=== PATIENT | female | born 1960 | race Caucasian/White ===

== ENCOUNTER 2016-06-02 01:03 | Inpatient (IN) | payer OTHER ==
[~2016-06-02] VITALS: Ht 152.4 cm; Wt 52.2 kg
[~2016-06-02 01:03] MED LIST: BACLOFEN10 M1 PO; KETOROLAC TROME10 M1 PO; MOBIC7.5 M1 PO; MOTRIN IB200 M1 PO; OXYCODONE HCL10 M2 PO; PERCOCET 5-3251 EACH PO; PREMARIN0.45 M1 PO; SERTRALINE HCL50 MG PO; TRAMADOL HCL50 M1 PO; VICODIN 5-3001 EACH PO; ZOLPIDEM TARTRA10 M1 PO
--- NOTE | 2016-06-02 20:30 | NUR ---
PT ARRIVED TO A VIA STRETCHER FROM PACU @ 2024. FAMILY AT BEDSIDE. PT DROWSY/AROUSABLE, CALM, AND COOPERATIVE. PER PT - PAIN IS TOLERABLE AND STABLE AT THIS TIME. SANTANA GALE REPORTED TO BEDSIDE. RN JACOBY COMPLETED VITAL SIGNS. THIS RN COMPLETED ADMISSION ASSESSMENT. PT ORIENTED TO ROOM, STAFF, AND CALL VERDIN. BOX LUNCH ORDERED WITH CENTRIFUGAL DRIER OPERATOR ON Q PUMP IN PLACE AND RUNNING AT 10ML/HR. NILSON WRAP TO RLE. ALPS PLACED ON LLE. RN WILL CONTINUE TO MONITOR PT.
[2016-06-02 21:00] VITALS: BP 128/72
--- NOTE | 2016-06-02 21:53 | PN- Orthopedic ---
Subjective Subjective: poc s/p right tka no complaints denies cp, sob, no n+v Objective Vital Signs and I&Os Vital Signs Date Time Temp Pulse Resp B/P Pulse O2 O2 Flow FiO2 Ox Delivery Rate 06/021 95 Room Air 06/02 2100 97.5 78 14 128/72 95 Room Air Physical Exam: cv; rrr lngs: clear abd: sfot ext: drsg dry distal cms intact onq in place Assessment/Plan Assessment/Plan ortho stable plan oob with pt in am coumadin for dvt prophylaxis home d/c planning Core Measures/Miscellaneous Venous Thromboembolism VTE Risk Factors: Age > 40, Surgery VTE Contraindications: No Contraindications VTE Prophylaxis Ordered Inpt: Mech & Pharm VTE Diagnosis: No Beta Halina Is Beta Halina a Home Med? No Antibiotics Is Patient on Antibiotics? Yes
[2016-06-02 23:03] VITALS: BP 130/72
[2016-06-03 00:59] VITALS: BP 124/70
[2016-06-03 02:59] VITALS: BP 120/64
[2016-06-03 06:36] VITALS: BP 116/74
--- NOTE | 2016-06-03 08:30 | PN- Orthopedic ---
See Addendum Subjective Subjective: NAEO. Patient without new c/o. Pain controlled. Denies numbness/tingling in BLE. Has not been OOB. Tolerating diet, no n/v. +flatus, no BM. Denies CP/ SOB. Objective Vital Signs and I&Os Vital Signs Date Time Temp Pulse Resp B/P Pulse O2 O2 Flow FiO2 Ox Delivery Rate 06/03 0636 97.8 83 20 116/74 95 Room Air 06/03 0259 98.1 75 18 120/64 95 Room Air 06/03 0059 98.2 81 18 124/70 96 Room Air 06/02 2303 97.9 90 20 130/72 96 Room Air 06/02 2101 95 Room Air 06/02 2100 97.5 78 14 128/72 95 Room Air Intake & Output 06/03 1600 06/03 0800 06/03 0000 06/02 1600 06/02 0800 06/02 0000 Intake Total 1200 700 Output Total 3600 Balance -2400 700 Intake, IV 600 300 Intake, Oral 600 400 Number 0 Bowel Movements Output, Urine 3600 Patient 115 lb Weight Physical Exam: General: NAD, comfortable, A&Ox3 Chest: NRD, breathing comfortably in room air. RRR Abdomen: soft, nontender, nondistended. Ext: Right knee dressing clean dry and intact. Right On-Q pump in place. No calve swelling/TTP, neurovascularly intact bilateral lower extremities Current Medications: Current Medications Sig/Rosaura Start time Last Medication Dose Route Stop Time Status Admin Al Hydroxide/Mg 30 ML Q6P PRN 06/02 2044 AC Hydroxide PO Cefazolin Sodium 1,000 MG ONCE 06/02 0000 DC IV 06/02 235 Dextrose/Lactated 1,000 ML Q13H 06/02 2044 DC 06/02 Ringer's IV 2055 Diphenhydramine HCl 50 MG .STK-MED ONE 06/02 1953 DC IM 06/02 1954 Docusate Sodium 100 MG DAILY NEEDED PRN 06/02 2044 AC PO Fentanyl Citrate 100 MCG .STK-MED ONE 06/02 1600 DC IM 06/02 160 Hydromorphone HCl 2 MG .STK-MED ONE 06/02 193 DC IM 06/02 193 Meperidine HCl 50 MG .STK-MED ONE 06/02 1947 DC IM 06/02 194 Midazolam HCl 4 MG .STK-MED ONE 06/02 1600 DC IM 06/02 1601 Morphine Sulfate 2 MG Q2P PRN 06/02 2044 AC IV Morphine Sulfate 4 MG Q1P PRN 06/02 2044 AC 06/03 IV 0514 Ondansetron HCl 4 MG Q6P PRN 06/02 2044 AC IV Oxycodone/ 1 TAB Q4P PRN 06/02 2044 AC Acetaminophen PO Oxycodone/ 2 TAB Q4P PRN 06/02 2044 AC 06/03 Acetaminophen PO 0044 Polyethylene Glycol 17 GM DAILY NEEDED PRN 06/02 2044 AC PO Ramelteon 8 MG AT BEDTIME NEED.. 06/03 0830 UNVr PO Ropivacaine 500 ML ONCE ONE 06/02 184 DC ON-Q Ball 1 BAG INJ 06/02 1846 Senna/Docusate Sodium 2 TAB AT BEDTIME NEED.. 06/02 2044 AC PO Tranexamic Acid 2,000 MG .STK-MED ONE 06/02 1600 DC IV 06/02 1601 Vancomycin HCl 1,000 MG ONCE ONE 06/03 0300 DC 06/03 Dextrose/Water 250 ML IV 06/03 0359 0220 Warfarin Sodium 5 MG COUMADIN 1700 ONE 06/03 1700 AC PO 06/03 1701 Assessment/Plan Assessment/Plan 55yo F POD#1 s/p right TKA. AVSS, patient progressing well. - Pain control - DC ba - DC IVF - Abx complete - Bowel regimen - f/u INR, dose coumadin for INR 2-3 - OOB with PT, WBAT - I/O's - continue regular diet - Will d/w attending Core Measures/Miscellaneous Venous Thromboembolism VTE Risk Factors: Age > 40, Surgery VTE Contraindications: No Contraindications VTE Prophylaxis Ordered Inpt: Mech & Pharm VTE Diagnosis: No Beta Halina Is Beta Halina a Home Med? No Antibiotics Is Patient on Antibiotics? No
[2016-06-03 09:22] LABS: ABSOLUTE BASOPHIL COUNT 0 /CUMM (0.0-0.2); ABSOLUTE EOSINOPHIL COUNT 0 /CUMM (0.0-0.7); ABSOLUTE GRANULOCYTE CT 14.6 /CUMM (1.4-6.5); ABSOLUTE LYMPH COUNT 1.1 /CUMM (1.2-3.4); ABSOLUTE MONOCYTE COUNT 0.7 /CUMM (0.10-0.60); BASOPHIL % 0.1 % (0.0-2.0); EOSINOPHIL % 0 % (0-5); GRANULOCYTE % 88.5 % (42.2-75.2); HEMATOCRIT 36.3 % (37-47); MEAN CORPUSCULAR HGB 32.1 PG (27.0-31.0); MEAN CORPUSCULAR HGB CONC 34.2 G/DL (33.0-37.0); MEAN CORPUSCULAR VOLUME 93.8 FL (81.0-99.0); MEAN PLATELET VOLUME 7.5 FL (7.4-10.4); PLATELET COUNT 292 /CUMM (130-400); RBC DISTRIBUTION WIDTH 13.1 % (11.5-14.5); RED BLOOD CELL CT 3.87 /CUMM (4.20-5.40)
[2016-06-03 09:27] LABS: PT 11.5 SEC (9.4-12.5)
[2016-06-03 10:09] LABS: WHITE BLOOD CELL COUNT 16.5 /CUMM (4.8-10.8)
[2016-06-03 14:05] VITALS: BP 118/60
[2016-06-03 22:21] VITALS: BP 100/62
--- NOTE | 2016-06-03 22:45 | NUR ---
PT CALLED IN THIS RN AT 2100. PER PT ON-Q PUMP "EXPLODED". BALL DETACHED FROM TUBING AND CONTENTS OF ON-Q PUMP LEAKING OUT. ON-Q PUMP REMOVED FROM R THIGH. PRESSURE DRESSING APPLIED TO SITE. SANTANA HAYES CALLED AND MADE AWARE OF ABOVE. NO FURTHER ORDERS.
[2016-06-04 06:41] VITALS: BP 100/60
[2016-06-04 07:56] LABS: ABSOLUTE BASOPHIL COUNT 0 /CUMM (0.0-0.2); ABSOLUTE EOSINOPHIL COUNT 0.1 /CUMM (0.0-0.7); ABSOLUTE GRANULOCYTE CT 9.7 /CUMM (1.4-6.5); BASOPHIL % 0.4 % (0.0-2.0); EOSINOPHIL % 0.4 % (0-5); GRANULOCYTE % 75.6 % (42.2-75.2); HEMATOCRIT 37.1 % (37-47); MEAN CORPUSCULAR HGB 32.2 PG (27.0-31.0); MEAN CORPUSCULAR HGB CONC 33.9 G/DL (33.0-37.0); MEAN CORPUSCULAR VOLUME 94.8 FL (81.0-99.0); MEAN PLATELET VOLUME 7.5 FL (7.4-10.4); PLATELET COUNT 273 /CUMM (130-400); RBC DISTRIBUTION WIDTH 12.8 % (11.5-14.5); RED BLOOD CELL CT 3.92 /CUMM (4.20-5.40); WHITE BLOOD CELL COUNT 12.8 /CUMM (4.8-10.8)
[2016-06-04 08:16] LABS: PT 11.2 SEC (9.4-12.5)
--- NOTE | 2016-06-04 08:34 | PN- Orthopedic ---
See Addendum Subjective Subjective: Patient reporting increasing pain and right calf and right thigh. She states that the pain has come on suddenly. She denies any chest pain, shortness of breath, difficulty breathing. She denies nausea and vomiting. She has been out of bed ambulating. She has been voiding without difficulty. She acknowledges difficulty moving her bowels. Objective Vital Signs and I&Os Vital Signs Date Time Temp Pulse Resp B/P Pulse O2 O2 Flow FiO2 Ox Delivery Rate 06/04 0641 98.0 84 19 100/60 94 Room Air 06/03 2221 98.0 86 18 100/62 94 Room Air 06/03 1430 Room Air 06/03 1405 98.0 76 20 118/60 96 Room Air Intake & Output 06/04 1600 06/04 0800 06/04 0000 06/03 1600 06/03 0800 06/03 0000 Intake Total 9330 395 6723 700 Output Total 900 3600 Balance 1520 25 -2400 700 Intake, IV 20 75 600 300 Intake, Oral 1500 850 600 400 Number 0 0 Bowel Movements Output, Urine 900 3600 Patient 115 lb Weight Physical Exam: General: Alert and oriented 3 no acute distress Cardiac: Regular rhythm and rate, S1-S2 Pulmonary: Clear to auscultation bilaterally. Abdomen: Soft, nontender, nondistended. Bowel sounds 4 quadrants Extremities: Moves all extremities, distal sensations intact. Motor strength 5 out of 5 in plantar and dorsiflexion bilaterally. Skin warm and well perfused. 1+ pitting edema noted to right foot. DP pulses palpable, bilaterally. Right calf tender but soft. Left without tenderness. Surgical site: Right knee: Dressing removed, skin edges of incision appear well approximated. Steri-Strips remain in place. No evidence of drainage. No excessive erythema. New dressing applied. Assessment/Plan Assessment/Plan This is a 55-year-old female who is postop day 2 status post right total knee replacement. -Bilateral lower extremity ultrasounds to be ordered urgently to rule out DVT -Valium 5 mg to be given daily as needed for muscle spasm -Dulcolax suppository to be given now for constipation -IV 4 mg of morphine discontinued -IV 2 mg of morphine ordered every 2 hours when necessary for breakthrough pain -Continue diet as tolerated -Will re-ambulate patient once ultrasound is complete -Follow-up a.m. labs -Coumadin dosing for target INR between 2-3 -Will discuss with Charbel Connor MD Core Measures/Miscellaneous Venous Thromboembolism VTE Risk Factors: Age > 40, Surgery VTE Contraindications: No Contraindications VTE Prophylaxis Ordered Inpt: Mech & Pharm VTE Diagnosis: No Beta Halina Is Beta Halina a Home Med? No Antibiotics Is Patient on Antibiotics? No
--- NOTE | 2016-06-04 10:32 | RADIOLOGY REPORT ---
EXAMINATION: XR KNEE, RIGHT CLINICAL INFORMATION: Status post right total knee arthroplasty. COMPARISON: Right knee films dated 03/05/2016. TECHNIQUE: Frontal and lateral views of the right knee. FINDINGS: The patient is status post total right knee arthroplasty with the prosthetic components well seated within the [place] bone. No [place] bone fracture is seen. Alignment is anatomical. There is a small suprapatellar knee joint effusion and mild prepatellar soft tissue swelling. IMPRESSION: 1. Anatomic alignment status post total right knee arthroplasty. 2. Small suprapatellar knee joint effusion and mild prepatellar soft tissue swelling.
--- NOTE | 2016-06-04 10:33 | ULTRASOUND REPORT ---
EXAMINATION: US TRIPLEX LOWER EXTREMITY, BILATERAL CLINICAL INFORMATION: Calf redness, swelling, tenderness, right greater than left COMPARISON: None. TECHNIQUE: Color-flow triplex imaging with spectral analysis and compression Doppler were performed on the bilateral lower extremities. FINDINGS: Respiratory variation, normal compression and augmented flow are noted throughout the bilateral lower extremities. The visualized common femoral vein, superficial femoral vein, profunda femoral vein, popliteal vein and mid calf peroneal and posterior tibial venous segments show no evidence of deep venous thrombosis. There is a De La Rosa's cyst in the left popliteal fossa measuring 5.2 x 2.1 x 3.5 cm. No right De La Rosa's cyst is seen. IMPRESSION: 1. No evidence of deep venous thrombosis involving the bilateral lower extremities. 2. Left De La Rosa's cyst measuring 5.2 x 2.1 x 3.5 cm.
[2016-06-04 15:20] VITALS: BP 120/82
[2016-06-04] MEDS ORDERED: PERCOCET 5-3251 EACH PO (15:41)
[2016-06-04] MEDS ORDERED: COUMADIN2.5 M1 PO (15:42)
--- NOTE | 2016-06-04 15:45 | Patient Discharge Instructions ---
Discharge Instructions General Discharge Information You were seen/treated for: Right knee pain You had these procedures: Right total knee replacement Watch for these problems: Increasing pain, redness, warmth, swelling. Drainage of any type from incision. Inability to bear weight on right leg. Fever greater than 101.5. Do not soak the wound: Yes No bath, but you may shower: Yes Other wound care: Daily dry dressing changes Special Instructions: You're taking a blood thinning medication called Coumadin. Another name for this medication is warfarin. The dose of this medication will change daily. The dose is based upon blood work called INR. INR measures how thin your blood is. Please await specific instructions from Charbel Connor MD's office regarding how much Coumadin you are to be taking daily. Diet Continue normal diet: Yes Recommended Diet: Heart Healthy Additional DIET Information: Advance as tolerated Activity Full Activity/No Limits: No Activity Self Limited: Yes Pounds, do NOT lift more than: 10 Activity Limited to: Weight bear as tolerated Acute Coronary Syndrome Inclusion Criteria At DC or during hospital stay patient has or had the following: ACS DIAGNOSIS No Discharge Core Measures Meds if any: Prescribed or Continued at Discharge Meds if any: NOT Prescribed or Continued at Discharge Congestive Heart Failure Inclusion Criteria At DC or during hospital stay patient has or had the following: CHF DIAGNOSIS No Discharge Core Measures Meds if any: Prescribed or Continued at Discharge Meds if any: NOT Prescribed or Continued at Discharge Cerebrovascular accident Inclusion Criteria At DC or during hospital stay patient has or had the following: CVA/TIA Diagnosis No Discharge Core Measures Meds if any: Prescribed or Continued at Discharge Meds if any: NOT Prescribed or Continued at Discharge Venous thromboembolism Inclusion Criteria VTE Diagnosis No VTE Type NONE VTE Confirmed by (Test) NONE Discharge Core Measures - Per Current guidelines, there needs to be overlap - treatment for the first 5 days of Warfarin therapy. - If discharged on Warfarin prior to 5 days of - overlap therapy, the patient will need to be - assessed for post discharge needs including - *Post discharge parental anticoagulation - *Warfarin and/or parental anticoagulation education - *Follow up date to check INR post discharge At least 5 days overlap therapy as Inpatient No Meds if any: Prescribed or Continued at Discharge Note: Overlap Therapy is Warfarin and Anticoagulant Meds if any: NOT Prescribed or Continued at Discharge
--- NOTE | 2016-06-04 15:53 | Surgical Discharge Summary ---
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 Home Who Do You Live With? Family Services at Home: None What is Your Primary Language? Sami Review of Systems: See H&P Hospital Course Course Attending Physician: ELLE MURPHY,CHARBEL Primary Care Physician: TYLER OLIVER MD Hospital Course: Patient was admitted to the hospital on 06/02/2016 for an elective right total knee replacement. She tolerated the procedure well. She was transferred to a general surgical floor. Her diet was advanced and tolerated. Her pain was well controlled. She voided spontaneously. She moved her bowels. She noted on postop day 3 that she had pain to her operative side. An ultrasound was obtained and it was negative. She was evaluated and treated by physical therapy. She was deemed appropriate for discharge to short-term rehabilitation. Allergies: Coded Allergies: Egg Derived (Severe, GI DISTRESS 06/03/16) lactose (Intermediate, GI UPSET 03/24/16) NSAIDS (Non-Steroidal Anti-Inflamma (Intermediate, GI UPSET 05/23/16) Disposition Summary Disposition Principal Diagnosis: Right knee unilateral primary osteoarthritis Additional Diagnosis: None Discharge Disposition: SNF Discharge Instructions General Discharge Information Code Status: Full Code Patient's Diet: Regular, advance as tolerated Patient's Activity: Weight-bear as tolerated on right lower extremity Follow-Up Instructions/Appts: These contact Charbel Connor MD's office to arrange and/or confirm your follow-up appointment. He would like for you to be seen in his office in 6 weeks from the date of surgery. Medications at Discharge Discharge Medications: Stop taking the following medications: Ibuprofen (Motrin Ib) 200 MG TABLET ORAL Q4-6H as needed for PAIN Oxycodone HCl/Acetaminophen (Percocet 5-325 MG Tablet) 5 MG-325 MG TABLET ORAL TWICE DAILY Qty = 15 Oxycodone HCl (Oxycodone HCl) 10 MG TABLET ORAL EVERY SIX HOURS NEEDED as needed for severe pain Qty = 15 Ketorolac Tromethamine (Ketorolac Tromethamine) 10 MG TABLET ORAL THREE TIMES DAILY as needed for PAIN Qty = 12 Continue taking these medications: Estrogens, Conjugated (Premarin) 0.45 MG TABLET 1 Tablet ORAL DAILY Qty = 30 Zolpidem Tartrate (Zolpidem Tartrate) 10 MG TABLET 1 Tablet ORAL Every night as needed for SLEEP Qty = 30 Baclofen (Baclofen) 10 MG TABLET 1 Tablet ORAL THREE TIMES A DAY NEEDED as needed for muscle spasm/strain Qty = 30 Start taking the following new medications: Oxycodone HCl/Acetaminophen (Percocet 5-325 MG Tablet) 5 MG-325 MG TABLET 1-2 Tablet ORAL EVERY 4 HOURS NEEDED as needed for PAIN Qty = 36 No Refills Warfarin Sodium (Coumadin) 2.5 MG TABLET 1 Tablet ORAL DAILY Qty = 30 No Refills Instructions: TITRATE DOSE TO TARGET INR 2-3 Docusate Sodium (Colace) 100 MG CAPSULE 1 Capsule ORAL TWICE DAILY as needed for CONSTIPATION Qty = 30 No Refills Polyethylene Glycol 3350 (Miralax) 17 GRAM POWD.PACK 1 Packet ORAL DAILY as needed for CONSTIPATION Qty = 14 No Refills Instructions: dissolve in water
--- NOTE | 2016-06-04 16:12 | Operative Report ---
Operative/Inv Procedure Report Surgery Date: 06/02/16 Name of Procedure: Custom right total knee arthroplasty Pre-Operative Diagnosis: Primary right knee osteoarthritis Post-Operative Diagnosis: Same Estimated Blood Loss: less than 50ml Surgeon/Windows Architect: ELLE MURPHY,Aniket CORNELIUS Anesthesia: block Implants: Conformis total knee system I total custom femoral implant, I total custom tibial tray, lateral insert a, 29 patella Drains: None Specimens: Femoral, tibial, patellar bone Tourniquet: 63 minutes Complications: None Condition: Stable Operative Indication: Patient is a 55-year-old woman with a history of gradually worsening knee symptoms that have interfere with normal activities of daily living. She was found to have severe osteoarthritis. Due to ongoing symptoms and lack of improvement with conservative measures including activity modification and medications, injections, patient wished to proceed with surgical management. Risks benefits and expectations of surgical procedure were discussed including but not limited to persistent knee pain, need for subsequent surgery, infection, DVT, injury to blood vessel nerve, anesthesia risks Operative/Procedure Note Note: Patient was brought to the operating room and transferred to the operating room table. Once under appropriate anesthesia the right lower extremity was prepped and draped in standard fashion. Preoperative IV antibiotics were given prophylactically. Leg was elevated exsanguinated and tourniquet was inflated to 300 mm of pressure. Standard anterior incision was made for anticipated medial parapatellar approach to the knee. Incision was taken down sharply to the underlying retinaculum. Medial retinacular approach and minimal extension into the quadriceps tendon was used.. Soft tissue dissection was kept to a minimum. Remnants of the medial lateral meniscal cartilage were excised. Remnants of the ACL were excised. With the knee flexed and the patella subluxed I used the F1 jig and reamed any remaining articular cartilage from the medial and lateral surface. A small nipple that remained was removed with a Nitish. I then placed the combination jig of the F2 and F3 C. I pin the distal femoral cutting block in place. I placed a 2 pins followed by third crossing Ferguson lock the cutting block in place after I switched to the and captured cutting block. I also drilled the 2 drill holes for my reference points on the distal femur. My distal femoral cut was made with the step cut was made. Using the accommodation of the oscillating saw and the reciprocating saw. I then removed the distal femoral cutting block. I placed the F [address] over the previously marked pin sites in standard fashion and the name made my anterior and posterior cuts. This was then followed by removal of one of the pins in order to make my anterior chamfer. The femur was finished with the final F5 jig. My chamfers were completed. I was satisfied with the preparation of the femur. I then turned my attention to the tibia the fix slope tibial resection jig was put in place marked and then I removed any remaining articular cartilage in order to place this directly on the bone. I confirmed my alignment in both sagittal and axial planes. I then my cutting block in position. I protected the soft tissues medially laterally and posteriorly and then made my tibial cut. I was satisfied with the tibial cut and then used the appropriate spacer took the knee through range of motion. I was satisfied I removed all instruments copious irrigation followed I completed my tibial punch after completing the patellar cut as well patella was measured appropriate thickness was removed and then replaced with the 29 mm trial patella. The 3 lug holes were drilled. The 2 lug holes were drilled in the distal femur and then all the is was removed from the knee this was followed by the tibial punch. Once this was completed copious irrigation the knee followed cement was being mixed on the back table. Once the cement was ready applied it to the clean dried bony surfaces. The custom tibial component was impacted in place and excess cement was removed with curettes. Cement was applied to the dry clean bony surfaces of distal femur and the custom femoral component was impacted in place and excess cement was removed with curettes. Cement was applied to the dry clean bony surfaces of the patella after the trial polyethylene inserts were applied and the knee was taken out to full extension. The 29 mm patella was impacted in place and excess cement was removed with knife. During the cement hardening process and did a periarticular injection using a long-acting Marcaine. Once the cement was hardened I took the knee through range of motion. Small pieces of excess cement were removed with osteotome. I was satisfied with the 7 a component. The definitive inserts were applied after the tibial trays were copiously irrigated. A major there was no remaining soft tissue, bone fragments or cement fragments and the tibial tray. The locking mechanism confirmed. Took the knee through range of motion. Excellent stability in full extension mid flexion and full flexion to gravity. I did feel that patient's tracked slightly laterally and full flexion and therefore did perform a lateral release. I did this in the extra articular fashion leaving the synovium in place. The tourniquet was then deflated and the hemostasis was obtained. There was no need for a drain. I then closed the retinacular incision and the minimal extension into the quadriceps tendon with interrupted #1 Vicryl suture. Subcutaneous tissues closed in 2 layers with 2-0 Vicryl and skin was closed with a running 3-0 Vicryl suture with the knee in flexion. All levels of closure was followed by copious irrigation. Appropriate dressings were applied and patient was awakened and taken to recovery room in good condition. No intraoperative complications Discharge Disposition: PACU
[2016-06-04 22:15] VITALS: BP 120/64
--- NOTE | 2016-06-05 02:00 | NUR ---
PT GIVEN FRESH [place] [address]. PT ASKING FOR FRESH DURACOLD AT 0115. INFORMED PT ONCE DURACOLD IS FROZEN THIS RN WILL BRING IT IN FOR HER. EDUCATED TO KEEP ICE PACK OFF KNEE FOR 20 MINUTES. PRN PERCOCET AND VALIUM GIVEN TO HELP WITH PAIN RELIEF. WILL CONTINUE TO MONITOR PAIN.
[2016-06-05 06:45] VITALS: BP 108/60
[2016-06-05 07:44] LABS: ABSOLUTE BASOPHIL COUNT 0 /CUMM (0.0-0.2); ABSOLUTE EOSINOPHIL COUNT 0.1 /CUMM (0.0-0.7); ABSOLUTE GRANULOCYTE CT 7.2 /CUMM (1.4-6.5); ABSOLUTE LYMPH COUNT 1.8 /CUMM (1.2-3.4); ABSOLUTE MONOCYTE COUNT 0.8 /CUMM (0.10-0.60); BASOPHIL % 0.3 % (0.0-2.0); EOSINOPHIL % 0.9 % (0-5); GRANULOCYTE % 72.9 % (42.2-75.2); HEMATOCRIT 35.7 % (37-47); MEAN CORPUSCULAR HGB CONC 33.9 G/DL (33.0-37.0); MEAN CORPUSCULAR VOLUME 94.4 FL (81.0-99.0); MEAN PLATELET VOLUME 7.8 FL (7.4-10.4); PLATELET COUNT 261 /CUMM (130-400); RBC DISTRIBUTION WIDTH 13.2 % (11.5-14.5); RED BLOOD CELL CT 3.78 /CUMM (4.20-5.40); WHITE BLOOD CELL COUNT 9.9 /CUMM (4.8-10.8)
[2016-06-05] MEDS ORDERED: COLACE100 M1 PO (07:53)
[2016-06-05] MEDS ORDERED: MIRALAX17 G1 PO (07:53)
--- NOTE | 2016-06-05 07:58 | PN- Orthopedic ---
Subjective Subjective: NAEO. Patient without new complaints of. Pain occasionally uncontrollable but hope by by mouth pain meds. And as numbness or tingling right lower extremity. Rate and diet without nausea vomiting. Passing flatus and having bowel movements. Has been out of bed and ambulating with PT. Denies chest pain or shortness of breath. Objective Vital Signs and I&Os Vital Signs Date Time Temp Pulse Resp B/P Pulse O2 O2 Flow FiO2 Ox Delivery Rate 06/05 0645 97.9 87 20 108/60 93 Room Air 06/04 2215 98.6 94 20 120/64 95 Room Air 06/04 1520 97.9 99 20 120/82 94 06/04 1454 Room Air Intake & Output 06/05 0800 06/05 0000 06/04 1600 06/04 0806/04 0000 06/03 1600 Intake Total 240 2019 544 721 0334 925 Output Total 500 900 Balance 240 2019 855 358 4212 25 Intake, IV 20 30 0 20 75 Intake, Oral 240 2000 548 003 7631 850 Number 1 0 0 Bowel Movements Output, Urine 500 900 Physical Exam: General: NAD, comfortable, A&Ox3 Chest: NRD, breathing comfortably in room air. RRR Abdomen: soft, nontender, nondistended. Ext: Right knee dressing clean dry and intact. Right On-Q pump in place. No calve swelling/TTP, neurovascularly intact bilateral lower extremities Current Medications: Current Medications Sig/Rosaura Start time Last Medication Dose Route Stop Time Status Admin Al Hydroxide/Mg 30 ML Q6P PRN 06/02 Hydroxide PO 0717 Bisacodyl 10 MG ONCE ONE 06/04 0830 DC 06/04 TX 06/04 0831 1110 Diazepam 5 MG Q8P PRN 06/04 1745 06/05 PO 0146 Diazepam 5 MG DAILY PRN 06/04 0830 DC 06/04 PO 0831 Diphenhydramine HCl 1 LINDA PER PROTOCL PRN 06/04 TOP 2143 Docusate Sodium 100 MG BID 06/03 1000 06/04 PO 2141 Morphine Sulfate 2 MG Q2P PRN 06/02 IV 0613 Morphine Sulfate 4 MG Q1P PRN 06/02 2044 AK 06/04 IV 0630 Ondansetron HCl 4 MG Q6P PRN 06/02 2044 AC 06/04 IV 0731 Oxycodone/ 1 TAB Q4P PRN 06/02 2044 AC Acetaminophen PO Oxycodone/ 2 TAB Q4P PRN 06/02 2044 AC 06/05 Acetaminophen PO 0145 Patient Medication 1 ED .STK-MED ONE 06/04 1401 DC Teaching ED 06/04 1402 Polyethylene Glycol 17 GM DAILY NEEDED PRN 06/02 2044 AC 06/04 PO 08 Ramelteon 8 MG .STK-MED ONE 06/04 2039 DC PO 06/04 2040 Ramelteon 8 MG AT BEDTIME NEED.. 06/03 08 AC 06/04 PO 2044 Senna/Docusate Sodium 2 TAB AT BEDTIME NEED.. 06/02 2044 AC PO Warfarin Sodium 7.5 MG COUMADIN 1700 ONE 06/04 1700 DC 06/04 PO 06/04 1701 1559 Results Last 48 Hours of Labs: Laboratory Tests 06/05 06/04 0625 0630 Chemistry Sodium (137 - 145 mmol/L) Pending 136 L Potassium (3.5 - 5.1 mmol/L) Pending 4.3 Chloride (98 - 107 mmol/L) Pending 99 Carbon Dioxide (22 - 30 mmol/L) Pending 29 Anion Gap (5 - 16) Pending 8 BUN (7 - 17 mg/dL) Pending 11 Creatinine (0.5 - 1.0 mg/dL) Pending 0.7 Estimated GFR (>60 ml/min) > 60 BUN/Creatinine Ratio (7 - 25 %) Pending 15.7 Coagulation PT (9.4 - 12.5 SEC) Pending 11.2 INR (0.90 - 1.19) Pending 1.07 Hematology CBC w Diff Pending NO MAN DIFF REQ WBC (4.8 - 10.8 /CUMM) Pending 12.8 H RBC (4.20 - 5.40 /CUMM) Pending 3.92 L Hgb (12.0 - 16.0 G/DL) Pending 12.6 Hct (37 - 47 %) Pending 37.1 MCV (81.0 - 99.0 FL) Pending 94.8 MCH (27.0 - 31.0 PG) Pending 32.2 H RDW (11.5 - 14.5 %) Pending 12.8 Plt Count (130 - 400 /CUMM) Pending 273 MPV (7.4 - 10.4 FL) Pending 7.5 Gran % (42.2 - 75.2 %) 75.6 H Lymphocytes % (20.5 - 51.1 %) 16.0 L Monocytes % (1.7 - 9.3 %) 7.6 Eosinophils % (0 - 5 %) 0.4 Basophils % (0.0 - 2.0 %) 0.4 Absolute Granulocytes (1.4 - 6.5 /CUMM) 9.7 H Absolute Lymphocytes (1.2 - 3.4 /CUMM) 2.0 Absolute Monocytes (0.10 - 0.60 /CUMM) 1.0 H Absolute Eosinophils (0.0 - 0.7 /CUMM) 0.1 Absolute Basophils (0.0 - 0.2 /CUMM) 0 PUBS MCHC (33.0 - 37.0 G/DL) Pending 33.9 06/03 0838 Chemistry Sodium (137 - 145 mmol/L) 136 L Potassium (3.5 - 5.1 mmol/L) 4.2 Chloride (98 - 107 mmol/L) 101 Carbon Dioxide (22 - 30 mmol/L) 27 Anion Gap (5 - 16) 7 BUN (7 - 17 mg/dL) 13 Creatinine (0.5 - 1.0 mg/dL) 0.7 Estimated GFR (>60 ml/min) > 60 BUN/Creatinine Ratio (7 - 25 %) 18.6 Coagulation PT (9.4 - 12.5 SEC) 11.5 INR (0.90 - 1.19) 1.10 Hematology CBC w Diff NO MAN DIFF REQ WBC (4.8 - 10.8 /CUMM) 16.5 H RBC (4.20 - 5.40 /CUMM) 3.87 L Hgb (12.0 - 16.0 G/DL) 12.4 Hct (37 - 47 %) 36.3 L MCV (81.0 - 99.0 FL) 93.8 MCH (27.0 - 31.0 PG) 32.1 H RDW (11.5 - 14.5 %) 13.1 Plt Count (130 - 400 /CUMM) 292 MPV (7.4 - 10.4 FL) 7.5 Gran % (42.2 - 75.2 %) 88.5 H Lymphocytes % (20.5 - 51.1 %) 6.9 L Monocytes % (1.7 - 9.3 %) 4.5 Eosinophils % (0 - 5 %) 0 Basophils % (0.0 - 2.0 %) 0.1 Absolute Granulocytes (1.4 - 6.5 /CUMM) 14.6 H Absolute Lymphocytes (1.2 - 3.4 /CUMM) 1.1 L Absolute Monocytes (0.10 - 0.60 /CUMM) 0.7 H Absolute Eosinophils (0.0 - 0.7 /CUMM) 0 Absolute Basophils (0.0 - 0.2 /CUMM) 0 PUBS MCHC (33.0 - 37.0 G/DL) 34.2 Assessment/Plan Assessment/Plan 55yo female postop day #3 status post right total knee arthroplasty. AVSS, patient progressing well. - Pain control - PRN zofran - bowel regimen - dvt ppx - I/O's - OOB with PT - Daily dressing changes - ALPS - continue diet - DC to STR - Will d/w attending Core Measures/Miscellaneous Venous Thromboembolism VTE Risk Factors: Age > 40, Surgery VTE Contraindications: No Contraindications VTE Prophylaxis Ordered Inpt: Mech & Pharm VTE Diagnosis: No Beta Halina Is Beta Halina a Home Med? No Antibiotics Is Patient on Antibiotics? No
[2016-06-05 08:34] LABS: PT 14.2 SEC (9.4-12.5)
[2016-06-05 13:04] VITALS: BP 108/60
[2016-06-05 13:44] VITALS: BP 118/56
== END 2016-06-05 14:17 | DRG 302 ==
LOC: ENRESERVDT → ENRESERVTM → SDA 01:03 → 2NA 01:03
PROVIDERS: Nurse Practitioner; Physician Assistant; Physician Assistant Surgical; ADMIT Orthopaedic Surgery
PROC: 0SRC0J9 Replacement of Right Knee Joint with Synthetic Substitute, Cemented, Open Approach (ICD-10-PCS; principal; 2016-06-02)
DX: M17.11 Unilateral primary osteoarthritis, right knee (principal); F17.210 Nicotine dependence, cigarettes, uncomplicated; M79.7 Fibromyalgia; M06.9 Rheumatoid arthritis, unspecified
CPT/HCPCS: 2NASP; 36415; 73560-RT; 82436; 87086; 88305; 93970; 97112-GO; 97116-GO; 97161-GP; 97530-GO; C1713; C9290; J0690; J1200; J2405; J2795; J3360; J3370; J7040; J7060

== ENCOUNTER 2016-09-11 14:21 | Emergency (ER) | payer OTHER ==
[~2016-09-11] VITALS: Ht 152.4 cm; Wt 54.4 kg
[~2016-09-11 14:21] MED LIST changes: +COLACE100 M1 PO; +COUMADIN2.5 M1 PO; +MIRALAX17 G1 PO
--- NOTE | 2016-09-11 14:53 | ED HAND/WRIST INJURY COMPLAINT ---
History of Present Illness General Chief Complaint: Laceration Procedure Stated Complaint: LAC TO R INDEX FINGER Source: patient Exam Limitations: no limitations Vital Signs & Intake/Output Vital Signs & Intake/Output Vital Signs Date Time Temp Pulse Resp B/P B/P Pulse O2 O2 Flow FiO2 Mean Ox Delivery Rate 09/11 1642 98.9 79 20 129/56 96 Room Air 09/11 1523 98 Room Air 09/11 1428 96.5 100 14 124/71 100 Room Air Allergies Coded Allergies: Egg Derived (Severe, GI DISTRESS 06/03/16) lactose (Intermediate, GI UPSET 03/24/16) NSAIDS (Non-Steroidal Anti-Inflamma (Intermediate, GI UPSET 05/23/16) Reconcile Medications Estrogens, Conjugated (Premarin) 0.45 MG TABLET 1 TAB PO DAILY HORMONE ( Reported) Warfarin Sodium (Coumadin) 2.5 MG TABLET 1 TAB PO DAILY ANTICOAGULATION TITRATE DOSE TO [facility] INR 2-3 Triage Note: PT TO ED FOR LAC TO HER R POINTER FINGER WHILE PUTTING KNIVES AWAY IN HER KITCHEN. BLEEDING CONTROLLED ON ARRIVAL, UNSURE OF LAST TETANUS. Triage Nurses Notes Reviewed? yes Occurred: just prior to arrival Duration: hour(s): (1) Timing: remote history Injury Environment: home Severity: moderate Severity Numbers: 5 Pain/Injury Location: Right: 2nd finger. Context: laceration Method of Injury: laceration Modifying Factors: Improves With: immobilization. Worsens With: movement. HPI: Patient is a 55-year-old female presenting to the emergency Department chief complaint of laceration to right index finger that she got at work just prior to arrival on a sharp knife. I tripped tetanus immunization. Pain is moderate achy throbbing worse with palpation. They tried applying pressure and applying glue to help with the bleeding. Eventually it stopped denies any blood thinners. No numbness or tingling. (SEGUN HARRY) Past History Travel History Traveled to [place] past 21 day No Medical History Any Pertinent Medical History? 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 No (SEGUN HARRY) Review of Systems Review of Systems Constitutional: Reports: no symptoms. Comments Review of systems: See HPI, All other systems negative. Constitutional, no chills fever or weight loss HEENT: No visual changes no sore throat no congestion Cardiovascular: No chest pain Skin, no jaundice no rashes Respiratory: No dyspnea cough sputum or hemoptysis GI: No nausea no vomiting Muscle skeletal: no back pain, no neck pain, Neurologic: No numbness Psych: No stress anxiety Immunology: No splenectomy or history of AIDS (SEGUN HARRY) Physical Exam Physical Exam General Appearance: well developed/nourished, no apparent distress, alert, awake , comfortable Hand Left: normal inspection, normal range of motion Hand Right: lacerations Comments: Well-developed well-nourished no apparent distress. HEENT: Atraumatic, extraocular motion intact Neck: Supple, no lymphadenopathy Back: Nontender Respiratory: No respiratory distress Extremities: No edema, full range of motion of all digits on the upper extremity is bilaterally. Radial pulses are 2+ bilaterally. Neuro: Alert and oriented x3, motor and sensory intact in upper extremities bilaterally. Skin: 4 cm, Linear well approximated laceration noted on the right index finger just proximal to the PIP joint. No surrounding erythema or edema. There appears to be dried glue on this area. No active bleeding. Psych: Mood affect normal, normal memory normal judgment. (SEGUN HARRY) Progress Differential Diagnosis: LACERATION, ABRASION, CONTUSION, SKIN AVULSION Plan of Care: Patient given IM tetanus. We will try to dissolve the glue that was previously applied to this laceration. (SEGUN HARRY) Departure Departure Time of Disposition: 1620 Disposition: HOME OR SELF CARE Condition: Stable Clinical Impression Primary Impression: Laceration Referrals: MELODY MURPHY,TYLER Roman (PCP/Family) Additional Instructions: Return in 7-10 days for suture removal. Return sooner for any increased redness pain or swelling. Take [id number] Motrin and Tylenol as directed for pain. Departure Forms: Customer Survey General Discharge Information (SEGUN HARRY) PA/PEOPLESOFT DEVELOPER Co-Sign Statement Statement: ED Attending supervision documentation- [] I saw and evaluated the patient. I have also reviewed all the pertinent lab results and diagnostic results. I agree with the findings and the plan of care as documented in the PA's/PEOPLESOFT DEVELOPER's documentation. [X] I have reviewed the ED Record and agree with the PA's/PEOPLESOFT DEVELOPER's documentation. [] Additions or exceptions (if any) to the PAs/PEOPLESOFT DEVELOPER's note and plan are summarized below: [] (JAI NICE DO) Procedures Laceration/Wound Repair Laceration/Wound Repair: Wound Location: upper extremity Wound's Depth, Shape: linear, subcutaneous Wound Length (cm): 4 Wound Explored: clean, no foreign body removed, irrigated extensively Irrigated w/ Saline (ccs): 500 Betadine Prep? Yes Anesthesia: digit block, 1% lidocaine Volume Anesthetic (ccs): 4 Wound Debrided: minimal Wound Repaired With: sutures Suture Size/Type: 5:0, nylon Number of Sutures: 5 Date of Last Tetanus: 09/11/16 Tetanus Status: up to date Progress: Patient tolerated procedure well. (SEGUN HARRY)
[2016-09-11 16:42] VITALS: BP 129/56
== END 2016-09-11 16:48 ==
LOC: ERH 14:21
DX: S61.210A Laceration without foreign body of right index finger without damage to nail, initial encounter (principal); W26.0XXA Contact with knife, initial encounter; Y92.9 Unspecified place or not applicable; Y93.9 Activity, unspecified
CPT/HCPCS: 90471; 90714